=== PATIENT | female | born 1970 | race Caucasian/White ===

== ENCOUNTER 2024-05-12 06:05 | Emergency (ER) | payer OTHER, SELFPAY ==
[2024-05-12 06:09] VITALS: BP 200/90; PULSE 74; RESP 16; TEMP 36.6; O2SAT 100; BMI 23.4
[2024-05-12 06:12] VITALS: PULSE 76; O2SAT 100
--- NOTE | 2024-05-12 06:18 | ED.HA ---
HPI - Headache <Antoni Langston DO - Last Filed: 05/16/24 18:10> General Chief Complaint: Headache Stated Complaint: migraine Time Seen by Provider: 05/12/24 06:07 Source: patient Mode of arrival: EMS Limitations: no limitations History of Present Illness HPI Narrative: Patient is a 53-year-old female who was somewhat unwilling to participate in HPI or review of systems who is here for evaluation of a headache that started last evening that worsened approximately 4 hours ago. No fevers. Has a headache like this in the past. Has been over a year since she was had a headache like this. Did have some nausea and threw up once and received Zofran by EMS prior to arrival. Is having photophobia. Tried some ibuprofen prior to arrival without improvement. Related Data Allergies Allergy/AdvReac Type Severity Reaction Status Date / Time No Known Drug Allergies Allergy Verified 05/12/24 06:08 Review of Systems <DO Kassidy Tena Last Filed: 05/16/24 18:10> Review of Systems Narrative: Somewhat limited given the patient's willingness to participate in the exam/history Patient History <DO Kassidy Tena Last Filed: 05/16/24 18:10> Social History Smoking Status: Former smoker Smoking Status: Former smoker Substance Use Type: does not use Exam <DO Kassidy Tena Last Filed: 05/16/24 18:10> Initial Vital Signs Initial Vital Signs: Vital Signs Temperature 97.9 F 05/12/24 06:09 Pulse Rate 74 05/12/24 06:09 Respiratory Rate 16 05/12/24 06:09 Blood Pressure 200/90 H 05/12/24 06:09 Pulse Oximetry 100 05/12/24 06:09 Oxygen Delivery Method Room Air 05/12/24 06:09 Const General: No ill appearing Resp Effort & Inspection: normal respiratory effort Cardio Rate: regular rate Neuro General: patient alert, patient awake and moves all extremities Speech: speech normal <Antonia Plascencia DO - Last Filed: 05/12/24 08:13> Initial Vital Signs Initial Vital Signs: Vital Signs Temperature 97.9 F 05/12/24 06:09 Pulse Rate 74 05/12/24 06:09 Respiratory Rate 16 05/12/24 06:09 Blood Pressure 200/90 H 12/01/24 06:09 Pulse Oximetry 100 05/12/24 06:09 Oxygen Delivery Method Room Air 05/12/24 06:09 Course <Antoni Langston DO - Last Filed: 05/16/24 18:10> Orders Ordered: Discontinued Medications Diphenhydramine HCl (Diphenhydramine 50 Mg/Ml Vial) 25 mg IV NOW ONE Stop: 05/12/24 06:19 Last Admin: 05/12/24 06:37 Dose: 25 mg Documented By: AB Acetaminophen (Ofirmev) 1,000 mg in 100 mls @ 400 mls/hr IV NOW ONE Stop: 05/12/24 06:32 Last Infusion: 05/12/24 07:04 Dose: Infused Documented By: Admin: 05/12/24 06:37 Dose: 400 mls/hr Documented By: AB Ketorolac Tromethamine (Ketorolac 30 Mg/Ml Vial) 30 mg IV NOW ONE Stop: 05/12/24 06:19 Last Admin: 05/12/24 06:37 Dose: 30 mg Documented By: AB Metoclopramide HCl (Metoclopramide 10 Mg/2 Ml Inj) 10 mg IV NOW ONE Stop: 05/12/24 06:19 Last Admin: 05/12/24 06:37 Dose: 10 mg Documented By: Vital Signs Vital signs: Vital Signs - 8 hr 05/12/24 06:09 05/12/24 06:12 05/12/24 06:30 Temperature 97.9 F Pulse Rate 74 76 74 Respiratory Rate 16 Blood Pressure 200/90 H Pulse Oximetry 100 100 100 Oxygen Delivery Method Room Air 05/12/24 06:48 05/12/24 06:48 Temperature Pulse Rate 74 Respiratory Rate Blood Pressure 173/81 H Pulse Oximetry 100 Oxygen Delivery Method Room Air <Antonia Plascencia DO - Last Filed: 05/12/24 08:13> Orders Ordered: Discontinued Medications Diphenhydramine HCl (Diphenhydramine 50 Mg/Ml Vial) 25 mg IV NOW ONE Stop: 05/12/24 06:19 Last Admin: 05/12/24 06:37 Dose: 25 mg Documented By: AB Acetaminophen (Ofirmev) 1,000 mg in 100 mls @ 400 mls/hr IV NOW ONE Stop: 05/12/24 06:32 Last Infusion: 05/12/24 07:04 Dose: Infused Documented By: Admin: 05/12/24 06:37 Dose: 400 mls/hr Documented By: Ketorolac Tromethamine (Ketorolac 30 Mg/Ml Vial) 30 mg IV NOW ONE Stop: 05/12/24 06:19 Last Admin: 05/12/24 06:37 Dose: 30 mg Documented By: Metoclopramide HCl (Metoclopramide 10 Mg/2 Ml Inj) 10 mg IV NOW ONE Stop: 05/12/24 06:19 Last Admin: 05/12/24 06:37 Dose: 10 mg Documented By: Vital Signs Vital signs: Vital Signs - 8 hr 05/12/24 06:09 05/12/24 06:12 05/12/24 06:30 Temperature 97.9 F Pulse Rate 74 76 74 Respiratory Rate 16 Blood Pressure 200/90 H Pulse Oximetry 100 100 100 Oxygen Delivery Method Room Air 05/12/24 06:48 05/12/24 06:48 Temperature Pulse Rate 74 Respiratory Rate Blood Pressure 173/81 H Pulse Oximetry 100 Oxygen Delivery Method Room Air MDM - Headache <Antoni Kian, DO - Last Filed: 05/16/24 18:10> [facility] Narrative Medical decision making narrative: History of migraine headaches. Feels like prior migraines. Has tried ibuprofen without improvement. Nausea improved after Zofran provided by EMS. Migraine medications provided. Care turned over to day provider to follow up and disposition. <Antonia Plascencia, DO - Last Filed: 05/12/24 08:13> [facility] Narrative Medical decision making narrative: History of migraine headaches. Feels like prior migraines. Has tried ibuprofen without improvement. Nausea improved after Zofran provided by EMS. Migraine medications provided. Care turned over to day provider to follow up and disposition. Patient signed out to myself. Patient is seen and evaluated by myself. Patient states very similar to prior migraines. Pain and symptoms have resolved after medications. She desires discharge home. Discharge Plan Departure Patient Disposition: Home Clinical Impression: Migraine Instructions: DI for Migraine Activity Restrictions/Additional Instructions: Follow up as needed. Please return for recurrent symptoms, fevers, persistent vomiting, sudden vision changes, new numbness, tingling or weakness or other new or concerning changes. Stand Alone Forms: Patient Portal/API/Survey
[2024-05-12 06:30] VITALS: PULSE 74; O2SAT 100
[2024-05-12] MEDS: ACETAMINOPHEN IV 1,000 MG/100 ML VIAL 400 MG IV (06:37)
[2024-05-12] MEDS: KETOROLAC 30 MG/ML VIAL IV (06:37)
[2024-05-12] MEDS: diphenhydrAMINE 50 MG/ML VIAL 25 MG IV (06:37)
[2024-05-12] MEDS: METOCLOPRAMIDE 10 MG/2 ML INJ IV (06:37)
[2024-05-12 06:48] VITALS: BP 173/81; PULSE 74; O2SAT 100
== END 2024-05-12 08:03 | disposition home or self-care (01) ==
PROVIDERS: Emergency Provider Emergency Medicine
DX: G43.909 Migraine, unspecified, not intractable, without status migrainosus (principal)
CPT/HCPCS: 36415; 96365; 96375; 99284; J0134; J1200; J1885; J2765